=== PATIENT | male | born 1975 | race Caucasian/White ===

== ENCOUNTER 2020-01-01 22:19 | Emergency (ER) | payer BC, OTHER ==
[~2020-01-01] VITALS: Ht 177.8 cm; Wt 115.7 kg
[2020-01-01 22:32] VITALS: BP 107/62
== END 2020-01-02 02:47 | disposition home or self-care (01) ==
LOC: ER 22:19
DX: S62.335A Displaced fracture of neck of fourth metacarpal bone, left hand, initial encounter for closed fracture (principal); I10 Essential (primary) hypertension; W01.0XXA Fall on same level from slipping, tripping and stumbling without subsequent striking against object, initial encounter; Y93.89 Activity, other specified; Y92.89 Other specified places as the place of occurrence of the external cause; Y99.8 Other external cause status
CPT/HCPCS: 29125; 73110; 73130